=== PATIENT | male | born 1970 | race Two or more races ===

== ENCOUNTER 2017-06-28 06:57 | Emergency (ER) | payer SELFPAY ==
[~2017-06-28] VITALS: Ht 167.6 cm; Wt 67.2 kg
[2017-06-28 06:58] VITALS: BP 108/68
[2017-06-28] MEDS ORDERED: LIDOCAINE 1%, 20ML INFIL ONE (07:30)
[2017-06-28] MEDS ORDERED: DIPH,PERTUSS(ACELL),TET VAC/PF 0.5 ML IM-VACC ONE ×2 (07:30→07:38)
[2017-06-28] MEDS ORDERED: LIDOCAINE 1%, 20ML ONE (07:38)
[2017-06-28] MEDS ORDERED: METH40TA3 PO (07:41)
[2017-06-28] MEDS ORDERED: BACITRACIN ZINC OINT 500U/GM, 0.9 GM ONE (08:29)
== END 2017-06-28 08:47 | disposition home or self-care (01) ==
LOC: ED 08:30
DX: S61.011A Laceration without foreign body of right thumb without damage to nail, initial encounter (principal); X58.XXXA Exposure to other specified factors, initial encounter; Y93.89 Activity, other specified; Y92.69 Other specified industrial and construction area as the place of occurrence of the external cause; Y99.8 Other external cause status
CPT/HCPCS: 13131; 73130; 90471; 90715; 99285; J3490

== ENCOUNTER 2017-07-09 08:20 | Emergency (ER) | payer OTHER ==
[~2017-07-09] VITALS: Ht 167.6 cm; Wt 66.0 kg
[~2017-07-09 08:20] MED LIST: METH40TA3 PO
[2017-07-09 08:21] VITALS: BP 120/73
== END 2017-07-09 08:37 | disposition home or self-care (01) ==
LOC: ED 08:33
DX: S61.011D Laceration without foreign body of right thumb without damage to nail, subsequent encounter (principal); X58.XXXD Exposure to other specified factors, subsequent encounter; Y92.89 Other specified places as the place of occurrence of the external cause; Y99.8 Other external cause status
CPT/HCPCS: 99283